=== PATIENT | male | born 1940 | race Caucasian/White ===

== ENCOUNTER 2017-05-06 13:44 | Inpatient (IN) | payer MEDICARE, BC ==
[2017-05-06] MEDS ORDERED: PRINIVIL20 M1 PO (14:15)
[2017-05-06] MEDS ORDERED: LASIX40 M1 PO (14:15)
[2017-05-06] MEDS ORDERED: XARELTO20 M1 PO (14:16)
[2017-05-06] MEDS ORDERED: PERCOCET 5-3251 EACH PO (14:16)
[2017-05-06] MEDS ORDERED: PROTONIX40 M2 PO (14:16)
[2017-05-06] MEDS ORDERED: METOPROLOL TART25 M1 PO (14:16)
[2017-05-06] MEDS ORDERED: MS CONTIN15 M1 PO (14:17)
[2017-05-06] MEDS ORDERED: REGLAN10 M2 PO (14:17)
[2017-05-06] MEDS ORDERED: ASPIRIN81 M1 PO (14:18)
[2017-05-06] MEDS ORDERED: THERATRUM COMP1 EAC3 PO (14:18)
[2017-05-06] MEDS ORDERED: CATAPRES0.1 M1 PO (14:19)
[2017-05-06] MEDS ORDERED: NOVOLIN N100 UNIT/2 SC ×2 (14:19→14:20)
[2017-05-06] MEDS ORDERED: NOVOLIN R100 UNIT/1 SC (14:21)
--- NOTE | 2017-05-06 22:08 | NUR ---
VN ROUNDING DEFERRED PATIENT IS SLEEPING-EMR REVIEWED
--- NOTE | 2017-05-07 13:57 | NUR ---
VIRTUAL CARE NOTE: PT RESTING ON BED, STATES DOING OK, PAIN THE SAME BEFORE. CHART REVIEWED NOTED VASCULAR AND PAIN TEAM CONSULTED TODAY. PT IS TAKING FENTANYL IV AND PERCOCET PO FOR PAIN. PT WANTED TO REST DENIES ANY NEEDS OR QUESTIONS AT THIS TIME.
--- NOTE | 2017-05-07 19:12 | NUR ---
VIRTUAL CARE NOTE: ASSESSMENT DEFERRED. PT. SLEEPING.
[2017-05-08 06:05] LABS: HGB-HEMOGLOBIN 15.6 gm/dl (13.5-17.0); PLATELET COUNT 328 tho/cmm (150-450)
--- NOTE | 2017-05-09 21:43 | NUR ---
VIRTUAL CARE NOTE: ASSESSMENT DEFERRED. PT. SLEEPING.
[2017-05-10 05:56] LABS: HGB-HEMOGLOBIN 14.2 gm/dl (13.5-17.0); PLATELET COUNT 335 tho/cmm (150-450)
[2017-05-10 06:09] LABS: BLOOD UREA NITROGEN 35 mg/dl (6-24); CARBON DIOXIDE-VENOUS 32 mmol/L (22-32); CHLORIDE 96 mmol/l (96-110); CREATININE 1.65 mg/dl (0.60-1.30); SODIUM 136 mmol/L (135-145); eGFR VALUE FOR BLACK 46 mL/Min
[2017-05-10 06:25] LABS: ANION GAP 12 mmol/L (0-20); GLUCOSE 66 mg/dL (70-110); POTASSIUM 4.1 mmol/L (3.7-5.1)
--- NOTE | 2017-05-10 19:15 | NUR ---
VIRTUAL CARE NOTE: PT. IS IN BED, STATES HIS PAIN IS MINIMAL UNLESS HE GETS UP. HE STATES HE'S BEEN ONLY UP TO THE BR AND BACK. DASHAWN OZUNAKarime IS ON. EDUCATION REVIEWED OF SAFETY PRECAUTIONS AND INSTRUCTED TO CALL STAFF WHEN GETTING UP. EDUCATION ALSO PROVIDED THAT THE DOCTORS MAY SWITCH HIS MEDICATION OFF LOVENOX TO XARELTO IN THE AM. DENIES FURTHER NEEDS OR QUESTIONS AT THIS TIME. INSTRUCTED TO CALL FOR FUTURE NEEDS. STATES VERBAL UNDERSTANDING.
[2017-05-11] MEDS ORDERED: LOVENOX120 MG/0.1 SC (15:33)
[2017-05-11] MEDS ORDERED: LYRICA75 MG/CAP PO (15:39)
[2017-05-11] MEDS ORDERED: STOP HOME MEDICATION (15:41)
--- NOTE | 2017-05-11 16:44 | NUR ---
VIRTUAL CARE NOTE: PT DRESSED AT BEDSIDE, PER FLOOR NURSE SAID PT HAS A NEAR FALL EVENT RECENTLY. OK TO DO DISCHARGE TEACHING NOW, PT WILL STAY FOR 4HR POST-FALL IF STABLE THEN CAN BE DISCHARGED. NO INJURY REPORT FROM THE NEAR FALL EVENT. PT AND AGREE TO GO OVER DISCHARGE INSTRUCTIONS AT THIS TIME. INFORMATION GIVEN TO PT, QUESTIONS ANSWERED TO . PT AND DENIES FURTHER QUESTIONS. INFORMED FLOOR NURSE DISCHARGE TEACHING DONE.
== END 2017-05-11 18:30 | DRG 301 ==
LOC: 5WD 13:44
PROVIDERS: Internal Medicine; ADMIT Internal Medicine Cardiovascular Disease
DX: I82.402 Acute embolism and thrombosis of unspecified deep veins of left lower extremity (principal); E11.9 Type 2 diabetes mellitus without complications; N18.3 Chronic kidney disease, stage 3 (moderate); I12.9 Hypertensive chronic kidney disease with stage 1 through stage 4 chronic kidney disease, or unspecified chronic kidney disease; I25.10 Atherosclerotic heart disease of native coronary artery without angina pectoris
CPT/HCPCS: J1650; J1815; J2270; J3010; J7050